=== PATIENT | female | born 1945 | race Caucasian/White ===

== ENCOUNTER 2017-01-03 08:19 | Inpatient (IN) | payer MEDICARE ==
[~2017-01-03] VITALS: Ht 170.2 cm; Wt 106.0 kg
[~2017-01-03 08:19] MED LIST: ALBU17IN2 NEB; ALLE25CA OR; ALPR0.5T3 OR; AMLO5TAB OR; AMOX500T2 PO; ASPI325T OR; COLA100C3 PO; COZA100T OR; DOXY75CA3 PO; FAMO20TA PO; FURO40TA2 OR; GLUC850T PO; INSULANT SC; KLOR10TA PO; LOPR100T OR; NEUR400C OR; PRED20TA PO; SERT100T OR; SPIR100T PO; SYMB16INH INH; TIOT18INH INH; VICODIN 10/325 PO; hydrocodone PO
[2017-01-03 11:00] VITALS: BP 144/72
[2017-01-03] MEDS ORDERED: ACETAMINOPHEN TAB 650MG DOSE (2X325MG) PO PRN (11:00)
[2017-01-03] MEDS ORDERED: IPRATROPIUM 0.5MG/ALBUTEROL 2.5MG INH SOL UD 3ML (DUONEB)(J7620) NEB PRN (11:00)
[2017-01-03] MEDS ORDERED: DEXTROSE 50% 50 ML SYRINGE IV PRN (11:00)
[2017-01-03] MEDS ORDERED: GLUCOSE 4 GM CHEW TABLET PO PRN (11:00)
[2017-01-03] MEDS ORDERED: GLUCAGON FOR INJ 1 MG VIAL (J1610) SC PRN (11:00)
[2017-01-03] MEDS ORDERED: ONDANSETRON 4MG/2ML VIAL (J2405) IV PRN (11:00)
[2017-01-03 11:52] LABS: BASO % 0.1 % (0.0-1.0); EOS % 0.5 % (0.0-3.0); LARGE UNSTAINED CELL % 0.3 % (0.0-4.0); LYMPH # 0.6 K/mm3 (1.5-4.5); LYMPH % 6.1 % (24.0-44.0); MEAN CORPUSCULAR HEMOGLOBIN 27.8 pg (27.0-33.0); MEAN CORPUSCULAR HGB CONC 32.9 g/dl (32.0-36.5); MEAN CORPUSCULAR VOLUME 84.6 fl (80.0-96.0); MONO # 0.2 K/mm3 (0.0-0.8); MONO % 2.5 % (0.0-5.0); NEUTROPHILS # 8.6 K/mm3 (1.8-7.7); NEUTROPHILS % 90.5 % (36.0-66.0); PLATELET COUNT, AUTOMATED 231 k/mm3 (150-450); RED CELL DISTRIBUTION WIDTH 12.6 % (11.5-14.5); WHITE BLOOD COUNT 9.4 K/mm3 (4.0-10.0)
[2017-01-03] MEDS ORDERED: AZITHROMYCIN INJ 500 MG, VIAL MATE ADAPTER 1 EACH in D5W 250 ML IV SCH (12:00)
[2017-01-03] MEDS: IPRATROPIUM 0.5MG/ALBUTEROL 2.5MG INH SOL UD 3ML (DUONEB)(J7620) NEB SCH ×4 (12:00→23:52)
[2017-01-03] MEDS: HumaLOG INSULIN (NovoLOG) PER UNIT SC SCH ×3 (12:09→20:38)
[2017-01-03] MEDS: methylPREDNISolone INJ 125 MG/2 ML VIAL (J2930) IV SCH ×3 (12:10→23:56)
[2017-01-03 12:34] LABS: ALBUMIN 3.7 GM/DL (3.2-5.2); ALBUMIN/GLOBULIN RATIO 1.03 (1.00-1.93); BILIRUBIN,TOTAL 0.3 MG/DL (0.2-1.0); CALCIUM LEVEL 8.6 MG/DL (8.8-10.2); CREATININE FOR GFR 1.53 MG/DL (0.55-1.02); GLOMERULAR FILTRATION RATE 35.6 (>39); MAGNESIUM LEVEL 2.5 MG/DL (1.8-2.4); POTASSIUM SERUM 4.5 MEQ/L (3.5-5.1); TOTAL PROTEIN 7.3 GM/DL (6.4-8.2)
[2017-01-03 12:39] LABS: INR 2.27
[2017-01-03] MEDS ORDERED: ALPR0.5T3 PO (12:49)
[2017-01-03] MEDS ORDERED: ALPR1TAB3 PO (12:49)
[2017-01-03] MEDS ORDERED: SERT-138 PO (12:54)
[2017-01-03] MEDS ORDERED: GABA-283 PO (12:54)
[2017-01-03] MEDS ORDERED: FAMO40TA3 PO (12:54)
[2017-01-03] MEDS ORDERED: SPIR50TA2 PO (12:54)
[2017-01-03] MEDS ORDERED: METO50TA2 PO (12:54)
[2017-01-03] MEDS ORDERED: MAGN400T5 PO (12:54)
[2017-01-03] MEDS ORDERED: POTA10CA PO (12:54)
[2017-01-03] MEDS ORDERED: AMLO5TAB2 PO (12:54)
[2017-01-03] MEDS ORDERED: FURO1TAB15 PO (12:54)
[2017-01-03] MEDS ORDERED: WARF-58 PO (12:56)
[2017-01-03] MEDS ORDERED: COUM1TAB19 PO (12:56)
[2017-01-03] MEDS ORDERED: ACET20VL NEB (12:59)
[2017-01-03] MEDS ORDERED: KETO0.05 TOP (12:59)
[2017-01-03] MEDS ORDERED: cefTRIAXone SOD 1 GM in D5W MINI-BAG PLUS 50 ML IV SCH (13:00)
[2017-01-03] MEDS ORDERED: HYDR-3719 PO ×2 (13:00)
[2017-01-03] MEDS ORDERED: IPRASOL4 INH (13:02)
[2017-01-03] MEDS ORDERED: LEVO1INJ IV (13:04)
[2017-01-03] MEDS ORDERED: METH125VL IV (13:04)
[2017-01-03] MEDS ORDERED: PERCOCET 5MG/325MG TAB PO PRN (13:15)
[2017-01-03] MEDS ORDERED: KETOCONAZOLE 2% CREAM TOP PRN (13:15)
[2017-01-03] MEDS: guaiFENesin ER 600 MG TAB PO SCH ×2 (13:23→20:37)
[2017-01-03] MEDS ORDERED: HEPARIN SOD (PORCINE) 5000 UNITS/ML VIAL SC SCH (14:00)
[2017-01-03] MEDS: ALPRAZolam 0.5 MG TAB PO PRN (14:07)
[2017-01-03 15:24] VITALS: BP 139/63
[2017-01-03] MEDS ORDERED: NORCO, ANEXSIA 5/325MG TABLET (HYDROcodone/ACETAMINOPHEN) PO PRN (16:00)
[2017-01-03] MEDS: GABAPENTIN 400 MG CAP PO SCH ×2 (16:03→20:36)
--- NOTE | 2017-01-03 16:11 | HPEPDOC ---
General Date of Admission January 03, 2017 at 10:50 Other Providers PCP: Hank Reason Chief Complaint The patient is a 71-year-old female admitted with a reason for visit of Acute On Chronic Hypoxic Respiratory Failure. 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 The patient stated that she had been having worsening shortness of breath over the last 3 days. She notes that she had multiple positive sick contacts at home, and reports that she has been having a nonproductive cough with associated congestion. Overnight, the patient was noted to desaturate into the 80s while on CPAP and supplemental oxygen. The patient was subsequently transferred to [facility] for on the higher level of care and further evaluation and management of the patient's COPD exacerbation. Home Medications Scheduled (Levofloxacin in 5% Dextro 500 mg/100Ml) 1 Inj Inj, 500 MG IV DAILY, (Reported) GIVEN IN HOSPITAL Acetaminophen/Hydrocodone (Hydrocodone/Acetaminophen 10-325 mg) 1 Tab Tab, 2 TAB PO BID, (Reported) TAKES AT 1200 AND 1800 Acetaminophen/Hydrocodone (Hydrocodone/Acetaminophen 10-325 mg) 1 Tab Tab, 1 TAB PO QHS, (Reported) Acetylcysteine (Acetylcysteine) 200 Mg/Ml Soln, 200 MG NEB BID, (Reported) Alprazolam (Alprazolam) 0.5 Mg Tab, 0.5 MG PO QHS, (Reported) Alprazolam (Alprazolam) 1 Mg Tab, 1 MG PO BID, (Reported) TAKES AT NOON AND 1800 Amlodipine Besylate (Amlodipine Besylate) 5 Mg Tab, 5 MG PO BID, (Reported) Famotidine (Famotidine) 40 Mg Tab, 40 MG PO BID, (Reported) Furosemide (Furosemide) 80 Mg Tab, 80 MG PO BID, (Reported) Gabapentin (Gabapentin) 400 Mg Cap, 400 MG PO TID, (Reported) Magnesium Oxide (Magnesium Oxide 400) 400 Mg Tab, 400 MG PO DAILY, (Reported) Methylprednisolone (Solu-Medrol) 125 Mg/2 Ml Inj, 125 MG IV DAILY, (Reported) GIVEN IN HOSPITAL Metoprolol Tartrate (Metoprolol Tartrate) 50 Mg Tab, 50 MG PO TID, (Reported) Potassium Chloride (Klor-Con M10) 10 Meq Tabcr, 10 MEQ PO BID, (Reported) Sertraline HCl (Sertraline HCl) 100 Mg Tab, 100 MG PO DAILY, (Reported) Spironolactone (Spironolactone) 50 Mg Tab, 50 MG PO DAILY, (Reported) Warfarin Sod (Coumadin) 3 Mg Tab, 3 MG PO 3XW, (Reported) MON/MON/MON Warfarin Sod (Warfarin Sodium) 3 Mg Tab, 4.5 MG PO 4XWK, (Reported) SAT/SUN//THURS Scheduled PRN Albuterol/Ipratropium (Ipratropium [place]/Albut 0.5-2.5 (3) mg/3Ml) 1 Julianna Julianna, 1 JULIANNA INH QID PRN for SHORTNESS OF BREATH, (Reported) Ketoconazole (Ketoconazole) 1 Dose/15 Gm Cream, 1 DOSE TOP QID PRN for RASH, ( Reported) APPLIES TO BUTTOCKS Allergies Coded Allergies: Iodine (Verified Allergy, Intermediate, HIVES/RASH, 11/13/12) Lansoprazole (Verified Allergy, Intermediate, HIVES, 11/13/12) Povidone (Verified Allergy, Intermediate, HIVES/RASH, 11/13/12) Social History Alcohol: Denies Drugs: denies Recent Travel/Sick Contacts: Reports: Recent sick contacts, Denies: Recent travel Review of Symptoms Other systems 10 point review of systems negative unless otherwise specified in HPI. Physical Examination General Exam: Positive: Alert, Cooperative, No Acute Distress ENT Exam: Positive: Atraumatic, Mucous membr. moist/pink Neck Exam: Negative: JVD Chest Exam: Positive: Wheezing, Diminished, Negative: Rales Heart Exam: Positive: Rate Normal, Normal S1, Normal S2 Telemetry: Positive: Sinus Abdomen Exam: Positive: Soft, Negative: Tenderness Extremity Exam: Negative: Tenderness, Swelling Psych Exam: Positive: Oriented x 3 Vital Signs Vital Signs Date Time Temp Pulse Resp B/P (MAP) Pulse Ox O2 Delivery O2 Flow Rate FiO2 01/03/17 15:27 Nasal Cannula 2.0 01/03/17 15:24 98.5 92 22 139/63 (88) 89 Laboratory Data Labs 24H Laboratory Tests 2 01/03/17 11:25: Prothrombin Time 25.1H, Prothromb Time International Ratio 2.27 01/03/17 11:30: White Blood Count 9.4, Red Blood Count 4.47, Hemoglobin 12.4, Hematocrit 37.8, Mean Corpuscular Volume 84.6, Mean Corpuscular Hemoglobin 27.8, Mean Corpuscular Hemoglobin Concent 32.9, Red Cell Distribution Width 12.6, Platelet Count 231, Neutrophils (%) (Auto) 90.5H, Lymphocytes (%) (Auto) 6.1L, Monocytes (%) (Auto) 2.5, Eosinophils (%) (Auto) 0.5, Basophils (%) (Auto) 0.1, Neutrophils # (Auto) 8.6H, Lymphocytes # (Auto) 0.6L, Monocytes # (Auto) 0.2, Eosinophils # (Auto) 0.0, Basophils # (Auto) 0.0, Large Unclassified Cells % 0.3 , Large Unclassified Cells # 0.0, Anion Gap 10, Glomerular Filtration Rate 35.6L , Lactic Acid Level 3.5*H, Blood Urea Nitrogen 20H, Creatinine 1.53H, Sodium Level 132L, Potassium Level 4.5, Chloride Level 94L, Carbon Dioxide Level 28, Calcium Level 8.6L, Aspartate Amino Transf (AST/SGOT) 8L, Alanine Aminotransferase (ALT/SGPT) 19, Alkaline Phosphatase 101, Total Bilirubin 0.3, Total Protein 7.3, Albumin 3.7, Magnesium Level 2.5H, Albumin/Globulin Ratio 1.03, Thyroid Stimulating Hormone (TSH) 1.790 01/03/17 11:46: Bedside Glucose (Misc Panel) 178H CBC/BMP Laboratory Tests 01/03/17 11:30 Red Blood Count 4.47, Mean Corpuscular Volume 84.6, Mean Corpuscular Hemoglobin 27.8, Mean Corpuscular Hemoglobin Concent 32.9, Red Cell Distribution Width 12.6 , Neutrophils (%) (Auto) 90.5 H, Lymphocytes (%) (Auto) 6.1 L, Monocytes (%) ( Auto) 2.5, Eosinophils (%) (Auto) 0.5, Basophils (%) (Auto) 0.1, Neutrophils # ( Auto) 8.6 H, Lymphocytes # (Auto) 0.6 L, Monocytes # (Auto) 0.2, Eosinophils # ( Auto) 0.0, Basophils # (Auto) 0.0, Calcium Level 8.6 L, Aspartate Amino Transf ( AST/SGOT) 8 L, Alanine Aminotransferase (ALT/SGPT) 19, Alkaline Phosphatase 101 , Total Bilirubin 0.3, Total Protein 7.3, Albumin 3.7 Microbiology Microbiology 01/03/17 Blood Culture, Received Pending 01/03/17 Respiratory Virus Panel (PCR) ([facility]) - Final, Complete Human Rhinovirus/Enterovirus Plan / VTE VTE Prophylaxis Ordered?: Yes Plan Plan Acute on Chronic Hypoxic and Hypercarbic Respiratory Failure 2/2 COPD Exacerbation from Entero/Rhinovirus CXR from [place] notable for RML infiltrate Blood Cultures, Sputum Culture ordered We will treat the patient with Rocephin, Azithromycin IV Steroids, Nebulizer treatments ordered ABG from [place] notable for Respiratory Acidosis with Metabolic Compensation 7.38/50/56/30.8 The patient does have very severe COPD with Hypercapnia and exercise and nocturnal hypoxemia FEV1 of 0.87 (33%), and an FVC of 1.54 (44%) on PFTs from 2013 according to our records here, when she followed with Dr. Baumann as an outpatient a few years ago. She currently follows with Dr. Sorensen of Pulmonary in the [facility]. We will continue to monitor the patient's respiratory status with the aforementioned medical intervention. Hx of Congestive Heart Failure, CAD EF Unknown Appears Euvolemic at this time Will cont with Lasix and Spironolactone as ordered Chronic Kidney Disease Stage [address] Chappell of Nephro in the [facility] Serum Cr appears to be at baseline Hx of Atrial Fibrillation Rate controlled Will hold Metoprolol at this time given COPD Exacerbation On Coumadin, INR therapeutic Hypertension, stable Cont regimen as prescribed Chronic Lower Back Pain with Spinal Stenosis Cont [place] 5/325mg prn as ordered Anxiety Cont Xanax as ordered DVT Prophylaxis On Coumadin DEMETRIA BORGES MD January 03, 2017 16:11
[2017-01-03] MEDS: NORCO, ANEXSIA 5/325MG TABLET (HYDROcodone/ACETAMINOPHEN) PO PRN ×3 (16:14→22:49)
[2017-01-03] MEDS ORDERED: WARFARIN SOD 3 MG TAB PO SCH (17:00)
[2017-01-03] MEDS: WARFARIN SOD 3 MG TAB PO SCH (17:21)
[2017-01-03] MEDS ORDERED: NS 1,000 ML IV ONE (18:00)
[2017-01-03] MEDS: FUROSEMIDE 80 MG TAB PO SCH (18:48)
[2017-01-03 20:00] VITALS: BP 139/65
[2017-01-03] MEDS: ALPRAZolam 0.5 MG TAB PO SCH (20:36)
[2017-01-03] MEDS: FAMOTIDINE 20 MG TAB PO SCH (20:37)
[2017-01-03] MEDS: POTASSIUM CHLORIDE 10 MEQ SR TABLET PO SCH (20:37)
--- NOTE | 2017-01-03 22:40 | ECGEPIP ---
Stationary ECG Study [facility] Test Date: 2017-01-03 Pat Name: FSOTER LI Department: Room: [place] [address] Gender: F Philatelic Consultant: RUTHIE : 1945 Requested By: DEMETRIA BORGES Order Number: [id number] Reading MD: Kenn Leyva Measurements Intervals [place] Rate: 90 P: 40 RI: 188 QRS: 41 QRSD: 108 T: 41 QT: 359 QTc: 440 Interpretive Statements SINUS RHYTHM Within normal limits. No prior ECG available for comparison at the time of interpretation. Electronically Signed On 01-03-2017 22:40:00 EDT by Kenn Leyva
[2017-01-04] VITALS: BP 136/63
[2017-01-04] MEDS: IPRATROPIUM 0.5MG/ALBUTEROL 2.5MG INH SOL UD 3ML (DUONEB)(J7620) NEB SCH ×5 (02:16→19:55)
[2017-01-04 04:00] VITALS: BP 128/58
[2017-01-04 04:43] LABS: MEAN CORPUSCULAR HEMOGLOBIN 28.1 pg (27.0-33.0); MEAN CORPUSCULAR HGB CONC 33.6 g/dl (32.0-36.5); MEAN CORPUSCULAR VOLUME 83.7 fl (80.0-96.0); RED CELL DISTRIBUTION WIDTH 12.8 % (11.5-14.5); WHITE BLOOD COUNT 12.1 K/mm3 (4.0-10.0)
[2017-01-04 04:47] LABS: INR 2.39
[2017-01-04 04:56] LABS: CALCIUM LEVEL 8.3 MG/DL (8.8-10.2); CREATININE FOR GFR 1.36 MG/DL (0.55-1.02); GLOMERULAR FILTRATION RATE 40.8 (>39); MAGNESIUM LEVEL 2.4 MG/DL (1.8-2.4)
[2017-01-04] MEDS: methylPREDNISolone INJ 125 MG/2 ML VIAL (J2930) IV SCH (05:59)
[2017-01-04 07:48] VITALS: BP 141/62
[2017-01-04] MEDS: SPIRONOLACTONE 50 MG TAB PO SCH (08:25)
[2017-01-04] MEDS: FUROSEMIDE 80 MG TAB PO SCH ×2 (08:25→16:57)
[2017-01-04] MEDS: HumaLOG INSULIN (NovoLOG) PER UNIT SC SCH ×4 (08:25→21:00)
[2017-01-04] MEDS: SERTRALINE 100 MG TAB PO SCH (08:26)
[2017-01-04] MEDS: GABAPENTIN 400 MG CAP PO SCH ×3 (08:26→20:35)
[2017-01-04] MEDS: guaiFENesin ER 600 MG TAB PO SCH ×2 (08:26→20:35)
[2017-01-04] MEDS: POTASSIUM CHLORIDE 10 MEQ SR TABLET PO SCH ×2 (08:26→20:35)
[2017-01-04] MEDS: FAMOTIDINE 20 MG TAB PO SCH ×2 (08:26→20:36)
[2017-01-04] MEDS: NORCO, ANEXSIA 5/325MG TABLET (HYDROcodone/ACETAMINOPHEN) PO PRN ×3 (11:29→23:21)
[2017-01-04] MEDS: ALPRAZolam 0.5 MG TAB PO PRN ×2 (11:30→17:24)
--- NOTE | 2017-01-04 12:04 | IPNPDOC ---
Subjective Date Seen The patient was seen on 01/04/17. Subjective Chief Complaint/HPI The patient is a 71-year-old female admitted with a reason for visit of Acute On Chronic Hypoxic Respiratory Failure. General: Denies: Chills, Night Sweats Constitutional: Denies: Chills, Fever Eyes: Denies: Pain, Vision change ENT: Denies: Head Aches, Ear Pain Skin: Denies: Rash, Lesions Pulmonary: Reports: Cough, Denies: Dyspnea Cardiovascular: Denies: Chest Pain, Palpitations Gastrointestinal: Denies: Nausea, Vomiting Genitourinary: Denies: Dysuria, Frequency Hematologic: Denies: Bruising, Bleeding Excessively Objective Physical Examination General Exam: Positive: Alert, Cooperative, No Acute Distress ENT Exam: Positive: Atraumatic, Mucous membr. moist/pink Neck Exam: Negative: JVD Chest Exam: Positive: Diminished, Other (Patient with no wheezing today, with better aeration on auscultation), Negative: Rales, Wheezing Heart Exam: Positive: Rate Normal, Normal S1, Normal S2 Telemetry: Positive: Sinus Abdomen Exam: Positive: Soft, Negative: Tenderness Extremity Exam: Negative: Tenderness, Swelling Psych Exam: Positive: Oriented x 3 Assessment /Plan Plan/VTE VTE Prophylaxis Ordered?: Yes Plan Acute on Chronic Hypoxic and Hypercarbic Respiratory Failure 2/2 COPD Exacerbation from Entero/Rhinovirus Patient with noted improvement on exam today, -wheezing, better air entry on auscultation Blood Culture unrevealing thus far IV Steroids transitioned to PO, Nebulizer treatments ordered Continue supportive treatment We will continue to monitor the patient's respiratory status with the aforementioned medical intervention. Hx of Congestive Heart Failure, CAD EF Unknown Appears Euvolemic at this time Will cont with Lasix and Spironolactone as ordered Chronic Kidney Disease Stage [address] Chappell of Nephro in the [facility] Serum Cr appears to be at baseline Hx of Atrial Fibrillation Rate controlled Will hold Metoprolol at this time given COPD Exacerbation On Coumadin, INR therapeutic Hypertension, stable Cont regimen as prescribed Chronic Lower Back Pain with Spinal Stenosis Cont [place] 5/325mg prn as ordered Anxiety Cont Xanax as ordered DVT Prophylaxis On Coumadin Disposition: Patient's respiratory status improved, steroids transitioned to by mouth, and physical therapy ordered. Anticipate discharge in the next 24-48 hours pending clinical improvement. VS, I&O, 24H, [place] Vital Signs/I&O Vital Signs Date Time Temp Pulse Resp B/P (MAP) Pulse Ox O2 Delivery O2 Flow Rate FiO2 01/04/17 11:29 20 Nasal Cannula 2.0 01/04/17 07:48 97.6 82 141/62 (88) 92 I&O- Last 24 Hours up to 6 AM 01/04/17 06:00 Intake Total 1140 ml Output Total 2400 ml Balance -1260 ml Laboratory Data 24H LABS Laboratory Tests 2 01/03/17 15:59: Lactic Acid Followup at 4 Hours 2.3*H 01/03/17 17:15: Bedside Glucose (Misc Panel) 156H 01/03/17 20:29: Bedside Glucose (Misc Panel) 251H 01/04/17 04:32: Prothrombin Time 26.1H, Prothromb Time International Ratio 2.39, Anion Gap 9, Glomerular Filtration Rate 40.8, Blood Urea Nitrogen 25H, Creatinine 1.36H, Sodium Level 133L, Potassium Level 4.0, Chloride Level 96L, Carbon Dioxide Level 28, Calcium Level 8.3L, Magnesium Level 2.4 01/04/17 07:37: Bedside Glucose (Misc Panel) 187H CBC/BMP Laboratory Tests 01/04/17 04:32 Red Blood Count 4.12, Mean Corpuscular Volume 83.7, Mean Corpuscular Hemoglobin 28.1, Mean Corpuscular Hemoglobin Concent 33.6, Red Cell Distribution Width 12.8 , Calcium Level 8.3 L Microbiology Microbiology 01/03/17 Blood Culture - Preliminary, Resulted No growth after 24 hours . All specim... 01/03/17 Respiratory Virus Panel (PCR) ([facility]) - Final, Complete Human Rhinovirus/Enterovirus DEMETRIA BORGES MD January 04, 2017 12:04
[2017-01-04 12:15] VITALS: BP 150/61
[2017-01-04 14:00] VITALS: BP 148/65
[2017-01-04] MEDS: WARFARIN SOD 3 MG TAB PO SCH (16:57)
[2017-01-04] MEDS: ALPRAZolam 0.5 MG TAB PO SCH (20:36)
[2017-01-04 22:00] VITALS: BP 186/91
[2017-01-05] MEDS: IPRATROPIUM 0.5MG/ALBUTEROL 2.5MG INH SOL UD 3ML (DUONEB)(J7620) NEB SCH ×3 (00:30→09:03)
[2017-01-05 06:00] VITALS: BP 147/71
[2017-01-05 06:45] LABS: MEAN CORPUSCULAR HEMOGLOBIN 27.3 pg (27.0-33.0); MEAN CORPUSCULAR HGB CONC 32.2 g/dl (32.0-36.5); MEAN CORPUSCULAR VOLUME 84.6 fl (80.0-96.0); RED CELL DISTRIBUTION WIDTH 13.1 % (11.5-14.5); WHITE BLOOD COUNT 13.7 K/mm3 (4.0-10.0)
[2017-01-05 06:46] LABS: INR 2.54
[2017-01-05 06:56] LABS: CALCIUM LEVEL 8.9 MG/DL (8.8-10.2); CREATININE FOR GFR 1.31 MG/DL (0.55-1.02); GLOMERULAR FILTRATION RATE 42.6 (>39); MAGNESIUM LEVEL 2.5 MG/DL (1.8-2.4); POTASSIUM SERUM 3.9 MEQ/L (3.5-5.1)
[2017-01-05] MEDS ORDERED: predniSONE 20 MG TAB PO SCH (09:00)
[2017-01-05] MEDS: HumaLOG INSULIN (NovoLOG) PER UNIT SC SCH (09:41)
[2017-01-05] MEDS: GABAPENTIN 400 MG CAP PO SCH (09:42)
[2017-01-05] MEDS: SERTRALINE 100 MG TAB PO SCH (09:42)
[2017-01-05] MEDS: FAMOTIDINE 20 MG TAB PO SCH (09:42)
[2017-01-05] MEDS: guaiFENesin ER 600 MG TAB PO SCH (09:42)
[2017-01-05] MEDS: SPIRONOLACTONE 50 MG TAB PO SCH (09:42)
[2017-01-05] MEDS: POTASSIUM CHLORIDE 10 MEQ SR TABLET PO SCH (09:42)
[2017-01-05] MEDS: FUROSEMIDE 80 MG TAB PO SCH (09:42)
[2017-01-05] MEDS ORDERED: PRED10TA PO (09:53)
--- NOTE | 2017-01-05 14:55 | DS.PDOC ---
Discharge Summary General Date of Admission January 03, 2017 at 10:50 Date of Discharge 01/05/17 Specialist/Consultants Involve PCP: Dr. Mckinney Reason Discharge Summary PROCEDURES PERFORMED DURING STAY: None. ADMITTING DIAGNOSES: 1. .COPD Exacerbation 2/2 Viral Illness, RLL Infiltrate 2. .Hx of CKD 3. .Hx of CHF DISCHARGE DIAGNOSES: 1. .COPD Exacerbation 2/2 Viral Illness, RLL Infiltrate 2. .Hx of CKD 3. .Hx of CHF COMPLICATIONS/CHIEF COMPLAINT: Acute On Chronic Hypoxic Respiratory Failure. HISTORY OF PRESENT ILLNESS: . 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 The patient stated that she had been having worsening shortness of breath over the last 3 days. She notes that she had multiple positive sick contacts at home, and reports that she has been having a nonproductive cough with associated congestion. Overnight, the patient was noted to desaturate into the 80s while on CPAP and supplemental oxygen. The patient was subsequently transferred to [facility] for on the higher level of care and further evaluation and management of the patient's COPD exacerbation. During hospitalization, the patient's respiratory panel came back positive for rhinovirus/enterovirus. In addition, a chest x-ray ordered at the other facility revealed a right lower lobe infiltrate. The patient was treated with IV steroids, antibiotics, and nebulizer treatments. The patient's respiratory status significantly improved over the next 48 hours. The patient noted that she was feeling much better and was ambulating the corridors without any SOB or limiting factors. She states that she is eager to return home today. Physical therapy has cleared the patient to return home. I've advised the patient to follow-up with her primary care physician within one week. In addition, the patient is also to follow up with her pulmonary doctor within 2-3 weeks for further optimization of her underlying COPD. DISCHARGE MEDICATIONS: Please see below. ALLERGIES: Please see below. PHYSICAL EXAMINATION ON DISCHARGE: VITAL SIGNS: Please see below. General Exam: Positive: Alert, Cooperative, No Acute Distress ENT Exam: Positive: Atraumatic, Mucous membr. moist/pink Neck Exam: Negative: JVD Chest Exam: Positive: Diminished, Other (Patient with no wheezing today, with better aeration on auscultation), Negative: Rales, Wheezing Heart Exam: Positive: Rate Normal, Normal S1, Normal S2 Telemetry: Positive: Sinus Abdomen Exam: Positive: Soft, Negative: Tenderness Extremity Exam: Negative: Tenderness, Swelling Psych Exam: Positive: Oriented x 3 LABORATORY DATA: Please see below. PROGNOSIS: Medically stable at this time ACTIVITY: As tolerated. DIET: .2gm low sodium diet DISCHARGE PLAN: Home DISPOSITION: 01 Home, Self-Care. DISCHARGE INSTRUCTIONS: 1. . Follow-up with primary care physician within one week 2. . Follow-up with pulmonary doctor within 2-3 weeks 3. Follow-up with incinerator attendant within 3-4 weeks 4. Return to the ER if symptoms return or persist. DISCHARGE CONDITION: Stable. TIME SPENT ON DISCHARGE: Greater than 30 minutes. Vital Signs/I&Os Vital Signs Date Time Temp Pulse Resp B/P (MAP) Pulse Ox O2 Delivery O2 Flow Rate FiO2 01/05/17 09:00 Nasal Cannula 2.0 01/05/17 06:00 97.4 85 19 147/71 (96) 90 I&O- Last 24 Hours up to 6 AM 01/05/17 05:59 Intake Total 1560 ml Output Total 2150 ml Balance -590 ml Laboratory Data Labs 24H Laboratory Tests 2 01/04/17 16:33: Bedside Glucose (Misc Panel) 211H 01/04/17 20:41: Bedside Glucose (Misc Panel) 139H 01/05/17 06:20: Prothrombin Time 27.4H, Prothromb Time International Ratio 2.54, Anion Gap 7L, Glomerular Filtration Rate 42.6, Blood Urea Nitrogen 29H, Creatinine 1.31H, Sodium Level 139, Potassium Level 3.9, Chloride Level 100, Carbon Dioxide Level 32, Calcium Level 8.9, Magnesium Level 2.5H CBC/BMP Laboratory Tests 01/05/17 06:20 Red Blood Count 4.37, Mean Corpuscular Volume 84.6, Mean Corpuscular Hemoglobin 27.3, Mean Corpuscular Hemoglobin Concent 32.2, Red Cell Distribution Width 13.1 , Calcium Level 8.9 FSBS Laboratory Tests Test 01/04/17 16:33 01/04/17 20:41 Range/Units Bedside Glucose (Misc Panel) 211 139 83-110 MG/DL Microbiology Microbiology 01/03/17 Blood Culture - Preliminary, Resulted No Growth after 48 hours. All Specime... 01/04/17 Gram Stain - Final, Resulted 01/04/17 Sputum Culture, Resulted Pending 01/03/17 Respiratory Virus Panel (PCR) ([facility]) - Final, Complete Human Rhinovirus/Enterovirus Discharge Medications Scheduled Acetaminophen/Hydrocodone (Hydrocodone/Acetaminophen 10-325 mg) 1 Tab Tab, 2 TAB PO BID, (Reported) TAKES AT 1200 AND 1800 Acetaminophen/Hydrocodone (Hydrocodone/Acetaminophen 10-325 mg) 1 Tab Tab, 1 TAB PO QHS, (Reported) Acetylcysteine (Acetylcysteine) 200 Mg/Ml Soln, 200 MG NEB BID, (Reported) Alprazolam (Alprazolam) 0.5 Mg Tab, 0.5 MG PO QHS, (Reported) Alprazolam (Alprazolam) 1 Mg Tab, 1 MG PO BID, (Reported) TAKES AT NOON AND 1800 Amlodipine Besylate (Amlodipine Besylate) 5 Mg Tab, 5 MG PO BID, (Reported) Famotidine (Famotidine) 40 Mg Tab, 40 MG PO BID, (Reported) Furosemide (Furosemide) 80 Mg Tab, 80 MG PO BID, (Reported) Gabapentin (Gabapentin) 400 Mg Cap, 400 MG PO TID, (Reported) Magnesium Oxide (Magnesium Oxide 400) 400 Mg Tab, 400 MG PO DAILY, (Reported) Metoprolol Tartrate (Metoprolol Tartrate) 50 Mg Tab, 50 MG PO TID, (Reported) Potassium Chloride (Klor-Con M10) 10 Meq Tabcr, 10 MEQ PO BID, (Reported) Prednisone (Prednisone) 10 Mg Tab, 10 MG PO ASDIRECTED Sertraline HCl (Sertraline HCl) 100 Mg Tab, 100 MG PO DAILY, (Reported) Spironolactone (Spironolactone) 50 Mg Tab, 50 MG PO DAILY, (Reported) Warfarin Sod (Coumadin) 3 Mg Tab, 3 MG PO 3XW, (Reported) MON/WED/FRI Warfarin Sod (Warfarin Sodium) 3 Mg Tab, 4.5 MG PO 4XWK, (Reported) SAT/SUN/TUES/THURS Scheduled PRN Albuterol/Ipratropium (Ipratropium [place]/Albut 0.5-2.5 (3) mg/3Ml) 1 Julianna Julianna, 1 JULIANNA INH QID PRN for SHORTNESS OF BREATH, (Reported) Ketoconazole (Ketoconazole) 1 Dose/15 Gm Cream, 1 DOSE TOP QID PRN for RASH, ( Reported) APPLIES TO BUTTOCKS Allergies Coded Allergies: Iodine (Verified Allergy, Intermediate, HIVES/RASH, 11/13/12) Lansoprazole (Verified Allergy, Intermediate, HIVES, 11/13/12) Povidone (Verified Allergy, Intermediate, HIVES/RASH, 11/13/12) DEMETRIA BORGES MD Jan 05, 2017 14:55
== END 2017-01-05 12:20 | disposition home or self-care (01) | DRG 189 ==
LOC: M ICU 10:50 → M MSPAV 01-04 11:57
PROVIDERS: ADMIT Internal Medicine; ATTEND Internal Medicine
DX: J96.21 Acute and chronic respiratory failure with hypoxia (principal); J44.1 Chronic obstructive pulmonary disease with (acute) exacerbation; E87.2 Acidosis; I13.0 Hypertensive heart and chronic kidney disease with heart failure and stage 1 through stage 4 chronic kidney disease, or unspecified chronic kidney disease; J96.22 Acute and chronic respiratory failure with hypercapnia; M48.06 Spinal stenosis, lumbar region; I48.91 Unspecified atrial fibrillation; B34.8 Other viral infections of unspecified site; B34.1 Enterovirus infection, unspecified; E11.9 Type 2 diabetes mellitus without complications; F41.9 Anxiety disorder, unspecified; I50.9 Heart failure, unspecified; I25.10 Atherosclerotic heart disease of native coronary artery without angina pectoris; N18.3 Chronic kidney disease, stage 3 (moderate); Z99.81 Dependence on supplemental oxygen; Z79.01 Long term (current) use of anticoagulants; Z79.899 Other long term (current) drug therapy; Z88.8 Allergy status to other drugs, medicaments and biological substances